=== PATIENT | male | born 2000 | race African-American/Black ===

== ENCOUNTER 2021-05-11 16:41 | Emergency (ER) | payer OTHER ==
[~2021-05-11] VITALS: Ht 185.4 cm; Wt 100.0 kg
[2021-05-11 16:42] VITALS: TEMP 98.5
[2021-05-11 19:15] VITALS: BP 121/74; PULSE 60
== END 2021-05-11 19:17 | disposition home or self-care (01) ==
LOC: COL.ER 16:41
DX: S43.005A Unspecified dislocation of left shoulder joint, initial encounter (principal); X50.1XXA Overexertion from prolonged static or awkward postures, initial encounter; Y93.11 Activity, swimming
CPT/HCPCS: J1170; J1885; J2250; J2704; J7030